=== PATIENT | male | born 1955 | race Two or more races ===

== ENCOUNTER 2019-10-07 13:27 | Emergency (ER) | payer OTHER ==
[~2019-10-07] VITALS: Ht 175.3 cm; Wt 126.1 kg
[2019-10-07 13:51] VITALS: BP 108/69
[2019-10-07] MEDS ORDERED: IBUPROFEN 600 MG TAB PO ONE (14:00)
== END 2019-10-07 19:35 | disposition left against medical advice (07) ==
LOC: ER 13:27
DX: N28.89 Other specified disorders of kidney and ureter (principal); R11.2 Nausea with vomiting, unspecified; R07.89 Other chest pain; I11.0 Hypertensive heart disease with heart failure; I50.9 Heart failure, unspecified; E11.9 Type 2 diabetes mellitus without complications; E78.5 Hyperlipidemia, unspecified; F17.210 Nicotine dependence, cigarettes, uncomplicated; I25.2 Old myocardial infarction; Z90.49 Acquired absence of other specified parts of digestive tract; Z95.1 Presence of aortocoronary bypass graft
CPT/HCPCS: 71046; 74176